=== PATIENT | female | born 1960 | race Caucasian/White ===

== ENCOUNTER 2021-11-23 08:15 | Emergency (ER) | payer OTHER ==
[~2021-11-23] VITALS: Ht 160 cm; Wt 109.0 kg
--- NOTE | 2021-11-23 08:28 | PHYS DOC ---
General Adult EDM: Chief Complaint: POST-OP PROBLEM HPI: HPI: 61-year-old female presents with bleeding from her temporary dialysis catheter site. The patient was washing her hair this morning and she accidentally got a hold of her catheter which is located in the upper right chest. It pulled out completely and she started bleeding. Bleeding was not controlled prior to arrival. She is due for dialysis today. The patient has a fistula but it was recently revised so she is on a temporary catheter. She has no other complaints at this time. Review of Systems: Review of Systems: Constitutional: Denies fever or chills Eyes: Denies change in visual acuity HENT: Denies nasal congestion or sore throat Respiratory: Denies cough or shortness of breath Cardiovascular: Denies chest pain or edema GI: Denies abdominal pain, nausea, vomiting, bloody stools or diarrhea : Denies dysuria Musculoskeletal: Denies back pain or joint pain Integument: Bleeding from right chest wall tunneled dialysis catheter Neurologic: Denies headache, focal weakness or sensory changes Endocrine: Denies polyuria or polydipsia Lymphatic: Denies swollen glands Psychiatric: Denies depression or anxiety Physical Exam: PE: Constitutional: Well developed, well nourished, morbidly obese, no acute distress, non-toxic appearance. [] HENT: Normocephalic, atraumatic, bilateral external ears normal, oropharynx moist, no oral exudates, nose normal. [] Eyes: PERRLA, EOMI, conjunctiva normal, no discharge. [] Neck: Normal range of motion, no tenderness, supple, no stridor. [] Cardiovascular:Heart rate regular rhythm, no murmur [] Lungs & Thorax: Bilateral breath sounds clear to auscultation [] Abdomen: Bowel sounds normal, soft, no tenderness, no masses, no pulsatile masses. [] Skin: Bleeding from tunneled dialysis catheter site right upper chest. [] Back: No tenderness, no CVA tenderness. [] Extremities: No tenderness, no cyanosis, no clubbing, ROM intact, no edema. [] Neurologic: Alert and oriented X 3, normal motor function, normal sensory function, no focal deficits noted. [] Psychologic: Affect normal, judgement normal, mood normal. [] EKG: EKG: [] Radiology/Procedures: Radiology/Procedures: [] Heart Score: C/O Chest Pain: N/A Risk Factors: Risk Factors: DM, Current or recent (<one month) smoker, HTN, HLP, family history of CAD, obesity. Risk Scores: Score 0 - 3: 2.5% MACE over next 6 weeks - Discharge Home Score 4 - 6: 20.3% MACE over next 6 weeks - Admit for Clinical Observation Score 7 - 10: 72.7% MACE over next 6 weeks - Early Invasive Strategies Course & Med Decision Making: Course & Med Decision Making Pertinent Labs and Imaging studies reviewed. (See chart for details) The patient was bleeding on arrival, but direct pressure on the site controlled the patient's bleeding. Labs are pending. We will determine which facility place the catheter and transfer the patient to that facility. The patient's labs are significant for hemoglobin of 10.6. She has a low platelet count of 109. Her creatinine and BUN are elevated as expected. We contacted the [facility] that the patient uses and they have helped set up an appointment for outpatient replacement of her dialysis catheter line for early this afternoon. They rescheduled her dialysis to tomorrow morning. Given the patient's labs are acceptable and her vitals are stable, I believe she does not have to be admitted for line placement and dialysis today. She is stable for discharge at this time. [] Angela Disclaimer: Angela Disclaimer: This electronic medical record was generated, in whole or in part, using a voice recognition dictation system. Departure Departure: Impression: Primary Impression: Complications, dialysis, catheter, mechanical Qualified Codes: T82.49XA - Other complication of vascular dialysis catheter, initial encounter Disposition: HOME / SELF CARE / HOMELESS Condition: STABLE Patient Instructions: Tunneled Catheter Insertion and Removal Additional Instructions: You have an appointment at the access center today at 1 PM. The address is [address] [place] [address], [address] [id number]. If you have any questions y ou can contact Mesha at: [phone]. Do not eat or drink anything prior to this appointment. COOPER BONILLA DO Nov 23, 2021 08:28
[2021-11-23 08:46] LABS: BASO # 0.1 x10^3/uL (0.0-0.2); BASO % 2 % (0-3); EOS # 0.1 x10^3/uL (0.0-0.7); EOS % 3 % (0-3); HEMATOCRIT 32.9 % (36.0-47.0); HEMOGLOBIN 10.6 g/dL (12.0-15.5); LYMPH % 31 % (24-48); MEAN CORPUSCULAR HEMOGLOBIN 31 pg (25-35); MEAN CORPUSCULAR HGB CONC 32 g/dL (31-37); MEAN CORPUSCULAR VOLUME 95 fL (79-100); MONO # 0.2 x10^3/uL (0.0-1.1); MONO % 7 % (0-9); NEUT # 1.9 x10^3uL (1.8-7.7); NEUT % 57 % (31-73); PLATELET COUNT 108 x10^3/uL (140-400); RED BLOOD COUNT 3.48 x10^6/uL (3.50-5.40); RED CELL DISTRIBUTION WIDTH 15.1 % (11.5-14.5); WHITE BLOOD COUNT 3.4 x10^3/uL (4.0-11.0)
[2021-11-23 08:51] LABS: CALCIUM 9.6 mg/dL (8.5-10.1); CREATININE 3.6 mg/dL (0.6-1.0); GFR 12.9; POTASSIUM 3.9 mmol/L (3.5-5.1)
[2021-11-23 08:57] LABS: ALBUMIN 3.8 g/dL (3.4-5.0); ALBUMIN/GLOBULIN RATIO 1.1 (1.0-1.7); TOTAL BILIRUBIN 0.4 mg/dL (0.2-1.0); TOTAL PROTEIN 7.4 g/dL (6.4-8.2)
[2021-11-23 09:15] VITALS: BP 162/59
== END 2021-11-23 09:15 | disposition home or self-care (01) ==
LOC: ER 08:15
DX: T82.838A Hemorrhage due to vascular prosthetic devices, implants and grafts, initial encounter (principal)
CPT/HCPCS: 36415; 80053; 85025; 99283